=== PATIENT | male | born 1950 | race Caucasian/White ===

== ENCOUNTER 2018-01-23 16:00 | Emergency (ER) | payer MEDICARE ==
--- NOTE | 2018-01-23 17:16 | XR ---
EXAMINATION TYPE: XR pelvis AP view DATE OF EXAM: 01/23/2018 COMPARISON: NONE HISTORY: 67-year-old male with pain FINDINGS: No displaced fracture seen. Mild superolateral joint space narrowing at both hips. There are lucencie s projected along the intertrochanteric region on both sides, suspected external artifact. Limited vi sualization of the lower femoral necks due to external rotation of the hips. Mild osteopenia. IMPRESSION: Lucent artifacts projecting at the bilateral intertrochanteric regions. The lower femoral neck region s are also limited in assessment due to external rotation of the hips. There are no displaced fractur es. If the patient is nonweightbearing or there is concern for an occult osseous injury, consider rep eat radiograph with better centering and slight internal rotation at the hips versus MRI.
--- NOTE | 2018-01-23 17:17 | XR ---
EXAMINATION TYPE: XR chest 2V DATE OF EXAM: 01/23/2018 COMPARISON: None HISTORY: 67-year-old male with pain TECHNIQUE: PA and lateral views FINDINGS: Heart borderline enlarged. Low lung volumes. Mild diffuse interstitial prominence has a chronic appea mackenzie. Mild elongation thoracic aorta. No consolidation or pleural effusion. IMPRESSION: Hypoventilatory changes and borderline heart size. There are chronic appearing changes without acute process seen.
--- NOTE | 2018-01-23 17:19 | XR ---
EXAMINATION TYPE: XR thoracic spine 2V DATE OF EXAM: 01/23/2018 COMPARISON: NONE HISTORY: 67-year-old male with pain after fall TECHNIQUE: 3 views FINDINGS: Small T12 ribs. 12 rib-bearing thoracic vertebral bodies. All pedicles are visualized. Bridging anter ior endplate spondylosis especially mid thoracic spine suggesting dish. Minimal anterior wedging T11, T12, and L1 probably physiologic wedging or remote compression injuries. Otherwise, vertebral body h eights are preserved and alignment is maintained. IMPRESSION: 1. DISH. 2. Minimal anterior wedging of T11, T12, and L1 probably physiologic wedging or remote compression in juries. Correlate for any pain at these levels. 3. No other vertebral compression collapse or malalignment.
--- NOTE | 2018-01-23 17:42 | ED ---
General Adult HPI - General Chief complaint: Fall Stated complaint: Fall/rt ribs Time Seen by Provider: 01/23/18 16:13 Source: patient, RN notes reviewed, old records reviewed Mode of arrival: wheelchair Limitations: no limitations - History of Present Illness Initial comments: This is a 67-year-old male the ER for evaluation status post fall. Patient has complaints of rib pain after fall. Patient fell yesterday, he did fall backwards he is putting some right-sided rib pain some left-sided rib pain with a deep breath with cough and movement. Pain does not hurt all time is better when he lays still he denies shortness of breath - Related Data Allergies Allergy/AdvReac Type Severity Reaction Status Date / Time No Known Allergies Allergy Verified 01/23/18 16:07 Review of Systems ROS Statement: Those systems with pertinent positive or pertinent negative responses have been documented in the HPI. ROS Other: All systems not noted in ROS Statement are negative. Past Medical History Past Medical History: Diabetes Mellitus, Hyperlipidemia, Hypertension History of Any Multi-Drug Resistant Organisms: None Reported Past Surgical History: Appendectomy, Hernia Repair Past Psychological History: No Psychological Hx Reported Smoking Status: Former smoker Past Alcohol Use History: Occasional Past Drug Use History: None Reported General Exam Limitations: no limitations General appearance: alert, in no apparent distress Head exam: Present: atraumatic, normocephalic, normal inspection Eye exam: Present: normal appearance, PERRL, EOMI. Absent: scleral icterus, conjunctival injection, periorbital swelling ENT exam: Present: normal exam, mucous membranes moist Neck exam: Present: normal inspection. Absent: tenderness, meningismus, lymphadenopathy Respiratory exam: Present: normal lung sounds bilaterally. Absent: respiratory distress, wheezes, rales, rhonchi, stridor Cardiovascular Exam: Present: regular rate, normal rhythm, normal heart sounds. Absent: systolic murmur, diastolic murmur, rubs, gallop, clicks GI/Abdominal exam: Present: soft, normal bowel sounds. Absent: distended, tenderness, guarding, rebound, rigid Extremities exam: Present: normal inspection, full ROM, normal capillary refill. Absent: tenderness, pedal edema, joint swelling, calf tenderness Back exam: Present: normal inspection Neurological exam: Present: alert, oriented X3, CN II-XII intact Psychiatric exam: Present: normal affect, normal mood Skin exam: Present: warm, dry, intact, normal color. Absent: rash Course Vital Signs 01/23/18 16:02 Temperature 98.3 F Pulse Rate 59 L Respiratory 18 Rate Blood Pressure 147/76 O2 Sat by Pulse 97 Oximetry - Reevaluation(s) Reevaluation #1: 01/23/18 17:40 Patient's in no acute distress, no difficulty breathing Medical Decision Making - Medical Decision Making 67 male status post fall. Patient sustained no injury. Patient can be discharged home - Radiology Data Radiology results: report reviewed (X-ray chest pelvis negative for acute disease), image reviewed Disposition Clinical Impression: Fall, Rib contusion Disposition: HOME SELF-CARE Condition: Good Instructions: Fall Prevention for Older Adults (ED), Rib Contusion (ED) Is patient prescribed a controlled substance at d/c from ED?: No Referrals: Claudio Vaughn MD [Primary Care Provider] - 1-2 days
[2018-01-23 17:56] VITALS: BP 138/70; PULSE 80; RESP 16; TEMP 97.8
== END 2018-01-23 17:54 | disposition home or self-care (01) ==
LOC: EC 16:00
DX: S20.211A Contusion of right front wall of thorax, initial encounter (principal); S20.212A Contusion of left front wall of thorax, initial encounter; Z87.891 Personal history of nicotine dependence; W01.0XXA Fall on same level from slipping, tripping and stumbling without subsequent striking against object, initial encounter
CPT/HCPCS: 71046; 72070; 72170; 99284

== ENCOUNTER → 2021-12-08 | Outpatient (CLI) | payer MEDICARE ==
--- NOTE | 2021-12-08 20:48 | US ---
EXAMINATION TYPE: US duplex aorta DATE OF EXAM: 12/08/2021 COMPARISON: NONE CLINICAL HISTORY: Z13.6 SCREENING FOR CARDIOVASCULAR DISORDER. obese patient with large abdomen, h/o smoking, quit 50yrs ago, no symptoms, no family history EXAM MEASUREMENTS: Abdominal Aorta: Proximal: not seen due to bowel gas and habitus Mid: 2.3 x 2.2cn Distal: 1.7 x 1.6cm Bifurcation: not seen due to bowel gas and habitus Limited study due to habitus IMPRESSION: 1. Limited examination due to bowel gas and body habitus. 2. Obvious aneurysm is not identified. Consider follow-up.
== END | disposition home or self-care (01) ==
LOC: RADUSWWP 09:28
PROVIDERS: ATTEND Family Medicine
DX: Z13.6 Encounter for screening for cardiovascular disorders (principal); Z87.891 Personal history of nicotine dependence
CPT/HCPCS: 93979

== ENCOUNTER → 2023-05-18 | Outpatient (CLI) | payer MEDICARE ==
[2023-05-18 16:01] LABS: ALT 20 U/L (10-49); AST 20 U/L (14-35); Albumin 4.3 g/dL (3.8-4.9); Albumin/Globulin Ratio 1.95 Ratio (1.60-3.17); Alkaline Phosphatase 80 U/L (41-126); Blood Urea Nitrogen 28.5 mg/dL (9.0-27.0); Calcium 9.3 mg/dL (8.7-10.3); Carbon Dioxide 21.3 mmol/L (21.6-31.8); Chloride 101 mmol/L (96-109); Globulin 2.2 g/dL (1.6-3.3); Glucose 139 mg/dL (70-110); Potassium 4.2 mmol/L (3.5-5.5); Sodium 136 mmol/L (135-145); Total Bilirubin 0.8 mg/dL (0.3-1.2); Total Protein 6.5 g/dL (6.2-8.2)
== END | disposition home or self-care (01) ==
LOC: LABWHC1 09:52
PROVIDERS: ATTEND Internal Medicine Interventional Cardiology
DX: I10 Essential (primary) hypertension (principal); E78.2 Mixed hyperlipidemia
CPT/HCPCS: 36415; 80053; 80061

== ENCOUNTER → 2023-11-18 | Outpatient (CLI) | payer MEDICARE ==
[2023-11-18 15:38] LABS: ALT 16 U/L (10-49); AST 21 U/L (14-35); Albumin 4.3 g/dL (3.8-4.9); Albumin/Globulin Ratio 2.05 Ratio (1.60-3.17); Alkaline Phosphatase 74 U/L (41-126); BUN/Creat Ratio 12.62 Ratio (12.00-20.00); Blood Urea Nitrogen 16.4 mg/dL (9.0-27.0); Calcium 9.1 mg/dL (8.7-10.3); Carbon Dioxide 23.5 mmol/L (21.6-31.8); Chloride 102 mmol/L (96-109); Globulin 2.1 g/dL (1.6-3.3); Glucose 124 mg/dL (70-110); Potassium 3.9 mmol/L (3.5-5.5); Sodium 137 mmol/L (135-145); Total Bilirubin 0.5 mg/dL (0.3-1.2); Total Protein 6.4 g/dL (6.2-8.2)
== END | disposition home or self-care (01) ==
LOC: LABWHC1 09:33
PROVIDERS: ATTEND Nurse Practitioner Adult Health
DX: I10 Essential (primary) hypertension (principal); E78.2 Mixed hyperlipidemia
CPT/HCPCS: 36415; 80053; 80061

== ENCOUNTER 2024-01-11 09:34 | Inpatient (IN) | payer MEDICARE ==
--- NOTE | 2024-01-11 11:21 | ED ---
General Adult HPI - General Chief complaint: Neuro Symptoms/Deficit Stated complaint: L Hand Numbness Time Seen by Provider: 01/11/24 10:04 Source: patient Mode of arrival: ambulatory Limitations: no limitations - History of Present Illness Initial comments: Dictation was produced using [employer] dictation software. please excuse any grammatical, word or spelling errors. Chief Complaint: 73-year-old male with left hand tingling History of Present Illness: Patient 73-year-old male starting on Wednesday he had initial episode of left hand tingling. He states that he thought he woke up and slept on his arm wrong. He told his family about and they were worried he was having a stroke. Symptoms began 3 to 4 days ago. States that it improved significantly however he still feels some tingling. Patient [place] any other symptoms. Patient denies any history of CVA The ROS documented in this emergency department record has been reviewed and confirmed by me. Those systems with pertinent positive or negative responses have been documented in the HPI. All other systems are other negative and/or noncontributory. - Related Data Home Medications Medication Instructions Recorded Confirmed Aspirin EC [Ecotrin Low Dose] 81 mg PO DAILY 01/23/18 01/11/24 Atorvastatin [Lipitor] 20 mg PO DAILY 01/23/18 01/11/24 Losartan/Hydrochlorothiazide 1 tab PO DAILY 01/23/18 01/11/24 [Losartan-Hctz 100-25 mg Tab] atenoloL [Tenormin] 25 mg PO DAILY 01/23/18 01/11/24 Cholecalciferol [Vitamin D3 (25 75 mcg PO DAILY 01/11/24 01/11/24 Mcg = 1000 Iu)] Ginkgo Biloba [place] Extract [Ginkgo 125 mg PO DAILY 01/11/24 01/11/24 Biloba] Semaglutide [Ozempic] 1 mg SQ TH 01/11/24 01/11/24 Allergies Allergy/AdvReac Type Severity Reaction Status Date / Time No Known Allergies Allergy Verified 01/11/24 12:27 Review of Systems ROS Statement: Those systems with pertinent positive or pertinent negative responses have been documented in the HPI. ROS Other: All systems not noted in ROS Statement are negative. Past Medical History Past Medical History: Diabetes Mellitus, Hyperlipidemia, Hypertension History of Any Multi-Drug Resistant Organisms: None Reported Past Surgical History: Appendectomy, Hernia Repair Past Psychological History: No Psychological Hx Reported Smoking Status: Former smoker Past Alcohol Use History: Rare Past Drug Use History: None Reported General Exam - General Exam Comments Initial Comments: PHYSICAL EXAM: General Impression: Alert and oriented x3, not in acute distress HEENT: Normocephalic atraumatic, extra-ocular movements intact, pupils equal and reactive to light bilaterally, mucous membranes moist. Cardiovascular: Heart regular rate and rhythm Chest: Able to complete full sentences, no retractions, no tachypnea Abdomen: abdomen soft, non-tender, non-distended, no organomegaly Musculoskeletal: Pulses present and equal in all extremities, no peripheral edema Motor: no focal deficits noted Neurological: CN II-XII grossly intact, no focal motor deficits noted, reported reduced sensation to light touch of the left hand Skin: Intact with no visualized rashes Psych: Normal affect and mood Limitations: no limitations Course Vital Signs 01/11/24 01/11/24 01/11/24 09:46 12:00 13:00 Temperature 98.0 F Pulse Rate 66 61 Respiratory 18 18 17 Rate Blood Pressure 145/74 149/78 139/76 O2 Sat by Pulse 99 100 100 Oximetry 01/11/24 14:00 Temperature Pulse Rate 62 Respiratory 18 Rate Blood Pressure 160/81 O2 Sat by Pulse 97 Oximetry EKG Findings - EKG Comments: EKG Findings:: My EKG interpretation: Ventricular rate 70, sinus rhythm,. 195, cures 95, QTc 408. No OR prolongation, no QTC prolongation, no ST or T-wave changes noted. Overall, this EKG is unremarkable Medical Decision Making - Medical Decision Making Was pt. sent in by a medical professional or institution (, PA, DOGGER, urgent care, hospital, or senior care...) When possible be specific @ -No Did you speak to anyone other than the patient for history (EMS, parent, family, police, friend...)? What history was obtained from this source @ -No Did you review nursing and triage notes (agree or disagree)? Why? @ -I reviewed and agree with nursing and triage notes Were old charts reviewed (outside hosp., previous admission, EMS record, old EKG, old radiological studies, urgent care reports/EKG's, senior care records)? Report findings @ -No old charts were reviewed Differential Diagnosis (chest pain, altered mental status, abdominal pain women, abdominal pain men, vaginal bleeding, musculoskeletal, weakness, fever, dyspnea, syncope, headache, dizziness, GI bleed, back pain, seizure, CVA, palpatations, mental health)? @ - Differential CVA: Ischemic stroke, hemorrhagic stroke, brain tumor, atypical migraine, Wernicke's encephalopathy, seizure, multiple sclerosis, meningitis, encephalitis, hypoglycemia, Guillain-Ludwig, electrolytes disturbance, myasthenia gravis.... This is not meant to be an all-inclusive list EKG interpreted by me (3pts min.). @ -See above X-rays interpreted by me (1pt min.). @ -None done CT interpreted by me (1pt min.). @ -CT brain shows no acute intracranial processes. There is diffuse hypoattenuation of the cerebral parenchyma with loss of griffin-white matter differentiation CT angiography shows no large vessel occlusion. U/S interpreted by me (1pt. min.). @ -None done What testing was considered but not performed or refused? (CT, X-rays, U/S, labs)? Why? @ -None What meds were considered but not given or refused? Why? @ -None Was smoking cessation discussed for >3mins.? @ -No Were there social determinants of health that impacted care today? How? (Homelessness, low income, unemployed, alcoholism, drug addiction, transpo rtation, low edu. Level, literacy, decrease access to med. care, residential, rehab)? @ -No Was there de-escalation of care discussed even if they declined (Discuss DNR or withdrawal of care, Hospice)? DNR status @ -No What co-morbidities impacted this encounter? (DM, HTN, Smoking, COPD, CAD, Cancer, CVA, ARF, Chemo, Hep., AIDS, mental health diagnosis, sleep apnea, morbid obesity)? @ -None Was patient admitted / discharged? Hospital course, mention meds given and route, prescriptions, significant lab abnormalities, going to OR and other pertinent info. @ -73-year-old male with acute onset left hand paresthesias. He has no other associated symptoms. Vital signs upon arrival are within acceptable limits. Clinical presentation suspicious for CVA. Laboratory evaluation unremarkable. CT imaging studies shows no acute processes. CT angiography shows no large vessel occlusion. Patient outside the window for thrombolytics. Not a candidate for thrombectomy given risk outweigh the benefits. Patient given aspirin. Will be admitted. Case discussed with Dr. Butler for hospital admission Did you discuss the management of the patient with other professionals (professionals i.e. , PA, DOGGER, lab, RT, psych nurse, social work case manager, it help desk manager, teacher, civil preparedness officer, classification case manager)? Give summary @ -See above Was critical care preformed (if so, how long)? @ -No Undiagnosed new problem with uncertain prognosis? @ -No Drug Therapy requiring intensive monitoring for toxicity (Heparin, Nitro, Insulin, Cardizem)? @ -No Were any procedures done? @ -No Diagnosis/symptom? Acute, or Chronic, or Acute on Chronic? Uncomplicated (without systemic symptoms) or Complicated (systemic symptoms)? @ -Hand paresthesia suspicious for CVA Side effects of treatment? @ -No Exacerbation, Progression, or Severe Exacerbation? @ -No Poses a threat to life or bodily function? How? (Chest pain, [place], [place], pneumonia, PE, COPD, DKA, ARF, appy, cholecystitis, CVA, Diverticulitis, Homicidal, Suicidal, threat to staff... and all critical care pts) @ -yes - Lab Data Result diagrams: 01/11/24 10:57 01/11/24 10:57 Lab Results 01/11/24 01/11/24 01/11/24 Range/Units 10:57 10:57 10:57 WBC 8.1 (3.8-10.6) k/uL RBC 3.92 L (4.30-5.90) m/uL Hgb 12.2 L (13.0-17.5) gm/dL Hct 36.2 L (39.0-53.0) % MCV 92.5 (80.0-100.0) fL MCH 31.0 (25.0-35.0) pg MCHC 33.6 (31.0-37.0) g/dL RDW 13.2 (11.5-15.5) % Plt Count 209 (150-450) k/uL MPV 7.7 Neutrophils % 74 % Lymphocytes % 16 % Monocytes % 7 % Eosinophils % 1 % Basophils % 0 % Neutrophils # 6.0 (1.3-7.7) k/uL Lymphocytes # 1.3 (1.0-4.8) k/uL Monocytes # 0.6 (0-1.0) k/uL Eosinophils # 0.1 (0-0.7) k/uL Basophils # 0.0 (0-0.2) k/uL PT 10.2 (10.0-12.5) sec INR 0.9 (<1.2) APTT 23.9 (22.0-30.0) sec Sodium 137 (137-145) mmol/L Potassium 3.7 (3.5-5.1) mmol/L Chloride 109 H (98-107) mmol/L Carbon Dioxide 19 L (22-30) mmol/L Anion Gap 9 mmol/L BUN 22 H (9-20) mg/dL Creatinine 1.53 H (0.66-1.25) mg/dL Est GFR (CKD-EPI)AfAm 52 (>60 ml/min/1.73 sqM) Est GFR (CKD-EPI)NonAf 45 (>60 ml/min/1.73 sqM) Glucose 125 H (74-99) mg/dL Calcium 8.7 (8.4-10.2) mg/dL Disposition Clinical Impression: Cerebrovascular accident (CVA) Disposition: ADMITTED IP TO THIS HOSP Condition: Fair Referrals: Joe Hart MD [Primary Care Provider] - 1-2 days Decision Time: 15:40
[2024-01-11 11:27] LABS: Basophils % (A) 0 %; Eosinophils # (A) 0.1 k/uL (0-0.7); Eosinophils % (A) 1 %; HCT 36.2 % (39.0-53.0); HGB 12.2 gm/dL (13.0-17.5); Lymphocytes # (A) 1.3 k/uL (1.0-4.8); Lymphocytes % (A) 16 %; MCHC 33.6 g/dL (31.0-37.0); MCV 92.5 fL (80.0-100.0); Mean Platelet Volume 7.7; Monocytes # (A) 0.6 k/uL (0-1.0); Monocytes % (A) 7 %; Neutrophils % (A) 74 %; Platelet Count 209 k/uL (150-450); RBC 3.92 m/uL (4.30-5.90); RDW 13.2 % (11.5-15.5); WBC 8.1 k/uL (3.8-10.6)
[2024-01-11 11:30] LABS: African American GFR (CKD) 52 (>60 ml/min/1.73 sqM); Anion Gap 9 mmol/L; Blood Urea Nitrogen 22 mg/dL (9-20); Calcium 8.7 mg/dL (8.4-10.2); Carbon Dioxide 19 mmol/L (22-30); Chloride 109 mmol/L (98-107); Glucose 125 mg/dL (74-99); Non-African American GFR(CKD) 45 (>60 ml/min/1.73 sqM); Sodium 137 mmol/L (137-145)
[2024-01-11 11:33] LABS: INR 0.9 (<1.2); Partial Thromboplastin Time 23.9 sec (22.0-30.0); Prothrombin Time 10.2 sec (10.0-12.5)
[2024-01-11 11:36] LABS: Potassium 3.7 mmol/L (3.5-5.1)
[2024-01-11] MEDS: SODIUM CHLORIDE 0.9% 1,000 ML IV STA (12:47)
--- NOTE | 2024-01-11 13:03 | CT ---
EXAMINATION TYPE: CT brain wo con CT DLP: 1868.8 mGycm, Automated exposure control for dose reduction was used. DATE OF EXAM: 01/11/2024 12:51 PM COMPARISON: . CLINICAL INDICATION:Male, 73 years old with history of hand numbness, Hand numbness since Wednesday TECHNIQUE: Brain: Axial CT images of the brain were obtained with coronal and sagittal reformats created and rev iewed. Contrast used: None. Oral contrast used: None. FINDINGS: Brain: Extra-axial spaces: No abnormal extra-axial fluid collections. Ventricular system: Mildly prominent ventricles and sulci indicating age related involution Cerebral parenchyma: No acute intraparenchymal hemorrhage or mass effect. The griffin-white junction is well differentiated. Scattered hypoattenuating areas are seen within the white matter. Cerebellum: Unremarkable. Mass effect: No evidence of midline shift. Intracranial vasculature: unremarkable Soft tissues: Normal. Calvarium/osseous structures: No depressed skull fracture. Paranasal sinuses and mastoid air cells: Mild scattered paranasal sinus disease. Visualized orbits: Orbital contents are intact. IMPRESSION: No acute intracranial process. Diffuse hypoattenuation of the cerebral parenchyma with loss of the griffin-white matter differentiation . This suggests chronic microangiopathy. Age-related involution.
--- NOTE | 2024-01-11 14:24 | CT ---
EXAMINATION TYPE: CT angio head neck CT DLP: 1868.8 mGycm, Automated exposure control for dose reduction was used. DATE OF EXAM: 01/11/2024 1:39 PM COMPARISON: . CLINICAL INDICATION:Male, 73 years old with history of neurologic defect; PHH, Hand numbness since Fr iday TECHNIQUE: Axially acquired helical CT angiogram of the head and neck was obtained with contrast. Axi al images are supplemented with 3D reconstructions and MIP images which were post-processed at an in dependent workstation. NASCET criteria used. Contrast used:65 ml mL of Isovue 370 without and with IV Contrast, Oral contrast used: None. FINDINGS: CTA HEAD: No evidence of acute intracranial hemorrhage, mass effect, or midline shift. The ventricles, sulci, a nd cisterns are unremarkable. There is a small amount of calcific plaque in the right carotid bulb. The visualized portions of the internal carotid arteries, middle cerebral arteries, anterior cerebral arteries, and posterior cerebr al arteries are patent. The basilar and vertebral arteries are patent. CTA NECK: Right Carotid System: The common carotid artery and external carotid artery are patent. The carotid bifurcation demonstrate s no evidence of hemodynamically significant stenosis. A small amount of right carotid bifurcation pl aque. No flow-limiting stenosis. The remaining portions of the internal carotid artery demonstrate n ormal size without significant narrowing. Left Carotid System: The common carotid artery and external carotid artery are patent. The carotid bifurcation demonstrate s no evidence of hemodynamically significant stenosis. The remaining portions of the internal carotid artery demonstrate normal size without significant narrowing. Vertebral arteries are patent without evidence hemodynamically significant stenosis. There is a three-vessel aortic arch. The origins of the great vessels are patent. No evidence of hemo dynamically significant stenosis. Upper thorax: IMPRESSION: 1. No evidence of dissection of the cervical internal carotid arteries or vertebral arteries or any e vidence of significant stenosis at the carotid bifurcations. 2. No evidence of intracranial high-grade stenosis or intracranial aneurysm.
[2024-01-11] MEDS ORDERED: NALOXONE 0.4 MG/ML 1 ML VIAL IV PRN (15:37)
[2024-01-11] MEDS: ASPIRIN 81 MG PO STA ×2 (16:09→16:11)
[2024-01-11] MEDS: SODIUM CHLORIDE 0.9% 1,000 ML IV SCH (16:10)
--- NOTE | 2024-01-11 17:15 | P.HPIM ---
History of Present Illness H&P Date: 01/11/24 Subjective: 73-year-old male with a past medical history of hypertension, HLD, and type 2 diabetes presents with 3 to 4 days of left hand numbness/tingling/weakness. Patient reports the left hand numbness and weakness began on Wednesday morning (01/06) at which time he thought he may have just slept on it weird. Patient reports that he numbness and weakness has significantly improved by the end of the day Wednesday, but at that point the tingling had started in the left hand. Patient reports he has regained most of the strength in his left hand back and does not really feel too much tingling as of Wednesday night. Due to the persistence of some of the weakness in the left hand, the patient's family were worried that he may have had a stroke at which point they urged him to come to the emergency department. Upon arrival to the ED patient admitted to the left hand tingling/numbness/weakness but denied any other symptoms. Patient also denied any history of CVA. In the ED patient's vitals were within normal limits with the exception of a slightly elevated blood pressure of 145/74. Patient received labs in the ED which were significant for sodium 137, potassium 3.7, bicarb 19, BUN 22, cr eatinine 1.53, glucose 125, WBC 8.1, hemoglobin 12.2, PT 10.2, INR 0.9, and APTT 23.9. Patient also received imaging including a brain CT which showed no acute intracranial process and diffuse hypoattenuation of the cerebral parenchyma with loss of the griffin-white matter differentiation. This suggest chronic microangiopathy. Age-related involution. Patient also received angiography CT of the head and neck which showed no evidence of dissection of the cervical internal carotid arteries or vertebral arteries or any evidence of significant stenosis at the carotid bifurcations. It also showed no evidence of intracranial hidegrade stenosis or intracranial aneurysm. Patient also rec eived an EKG which showed normal sinus rhythm, ventricular rate 70 bpm, AR intervals 195 MS, QRS duration 95 MS, and QTc 408 MS. Patient is admitted for further workup of left hand weakness and to rule out possible CVA. Pertinent positives and negatives discussed above, a complete review of systems was preformed and all the other sytems were negative. Vitals Signs Reveiwed. General: non toxic, no distress, appears at stated age, obese Derm: no unusual rashes/lesions, warm Head: atraumatic, normocephalic, symmetric Eyes: EOMI, no lid lag, anicteric sclera, pupils equal round reactive to light ENT: Nose and ears atraumatic Neck: No cervical lymphadenopathy, trachea midline, supple Mouth: no lip lesion, mucus membranes moist Cardiovascular: S1S2 reg, no murmur, positive dorsalis pedis pulse bilateral, no edema Lungs: Decreased air entry bilaterally, no rhonchi, no rales, no accessory muscle use Abdominal: soft, nontender to palpation, no guarding Ext: muscle strength 5 out of 5 in all 4 extremities grossly, no gross muscle atrophy, no contractures, Neuro: CN II-XI grossly intact, right upper, right lower and left lower extremity no neurological deficits. Left upper extremity hand motor strength 4.5/5, sensation intact. Psych: Alert, oriented, appropriate affect Data Reveiwed Today: Patient Labs: sodium 137, potassium 3.7, bicarb 19, BUN 22, creatinine 1.53, glucose 125, WBC 8.1, hemoglobin 12.2, PT 10.2, INR 0.9, and APTT 23.9 Imaging: Brain CT which showed no acute intracranial process and diffuse hypoattenuation of the cerebral parenchyma with loss of the griffin-white matter differentiation. Angiography CT of the head and neck which showed no evidence of dissection of the cervical internal carotid arteries or vertebral arteries or any evidence of significant stenosis at the carotid bifurcations. It also showed no evidence of intracranial hidegrade stenosis or intracranial aneurysm. EKG which showed normal sinus rhythm, ventricular rate 70 bpm, AR intervals 195 MS, QRS duration 95 MS, and QTc 408 MS Assesment and Plan:73-year-old male with a past medical history of hypertension, HLD, and type 2 diabetes presents with 3 to 4 days of left hand numbness/tingling. Patient being admitted for further workup of left hand weakness and to rule out possible CVA. Left hand weakness: Pinched nerve VS. CVA VS. Unknown etiology Patient has near full motor strength in left upper extremity. Pinched nerve is possible based on history from patient, but need to fully rule out CVA. Imaging from brain CT and angiography CT showed no evidence of CVA or claudication of any vessels Neurology consulted Consider ordering brain MRI Continue to monitor neurological signs Continue fluids (NS IV 20 mls/hour) Diabetes mellitus type 2: Glucose 125 A1c pending Follow-up glucose in the a.m. Consider starting sliding scale Chronic: HLDholding home meds for now Hypertensionholding home meds for now F NS 1000 mL IV 20 MLS per hour E none N heart healthy diet A ambulates unassisted Code Status: Full code Anticipated discharge place: To home Anticipated discharge time: Pending clinical course, if cleared by neuro likely tomorrow (01/11) I have seen and evaluated the patient today. Discussed with the resident and agree with the residents subjective and objective as documented in the resident's note. The assessment and plan was discussed and outlined as below. Patient reports weakness in his left hand that has been progressively improving since Wednesday. Possible nerve impingement. Neurology consulted for possible CVA. Order MRI brain, Echo, A1c, Lipid panel. Permissive hypertension. Start ASA 81 mg PO QD. Continue Lipitor 20 mg PO QD. Advanced neurochecks. Telemetry monitoring. PT/OT/ST consulted. Neurology consulted. Past Medical History Past Medical History: Diabetes Mellitus, Hyperlipidemia, Hypertension History of Any Multi-Drug Resistant Organisms: None Reported Past Surgical History: Appendectomy, Hernia Repair Past Psychological History: No Psychological Hx Reported Smoking Status: Former smoker Past Alcohol Use History: Rare Past Drug Use History: None Reported Medications and Allergies Home Medications Medication Instructions Recorded Confirmed Type Aspirin EC [Ecotrin Low Dose] 81 mg PO DAILY 01/23/18 01/11/24 History Atorvastatin [Lipitor] 20 mg PO DAILY 01/23/18 01/11/24 History Losartan/Hydrochlorothiazide 1 tab PO DAILY 01/23/18 01/11/24 History [Losartan-Hctz 100-25 mg Tab] atenoloL [Tenormin] 25 mg PO DAILY 01/23/18 01/11/24 History Cholecalciferol [Vitamin D3 (25 75 mcg PO DAILY 01/11/24 01/11/24 History Mcg = 1000 Iu)] Ginkgo Biloba [place] Extract [Ginkgo 125 mg PO DAILY 01/11/24 01/11/24 History Biloba] Semaglutide [Ozempic] 1 mg SQ TH 01/11/24 01/11/24 History Allergies Allergy/AdvReac Type Severity Reaction Status Date / Time No Known Allergies Allergy Verified 01/11/24 12:27 Physical Exam Vitals: Vital Signs Temp Pulse Resp BP Pulse Ox 01/11/24 14:00 62 18 160/81 97 01/11/24 13:00 17 139/76 100 01/11/24 12:00 61 18 149/78 100 01/11/24 09:46 98.0 F 66 18 145/74 99 Intake and Output 01/11/24 01/11/24 01/11/24 06:59 14:59 22:59 Other: Weight 95.254 kg Results CBC & Chem 7: 01/11/24 10:57 01/11/24 10:57 Labs: Abnormal Lab Results - Last 24 Hours (Table) 01/11/24 01/11/24 Range/Units 10:57 10:57 RBC 3.92 L (4.30-5.90) m/uL Hgb 12.2 L (13.0-17.5) gm/dL Hct 36.2 L (39.0-53.0) % Chloride 109 H (98-107) mmol/L Carbon Dioxide 19 L (22-30) mmol/L BUN 22 H (9-20) mg/dL Creatinine 1.53 H (0.66-1.25) mg/dL Glucose 125 H (74-99) mg/dL
[2024-01-11 20:14] VITALS: RESP 16
[2024-01-12 05:47] LABS: Glucose,Whole Blood 122 mg/dL (70-110)
[2024-01-12] MEDS: INSULIN ASPART (NovoLOG) 100 UNIT/ML VIAL SQ SCH (06:01)
--- NOTE | 2024-01-12 07:56 | P.CNNES ---
History of Present Illness Consult date: 01/11/24 Requesting physician: Vinny Lema Reason for Consult: CVA History of Present Illness: Patient is a 73-year-old right-handed male came to the hospital today at 9:34 AM for evaluation of left wrist drop. Patient states that he had gone to his motor home and he slept in usual state of health on night, 01/06/2024. He went to sleep at 11:30 PM on a very thin mattress, which lays over the plywood. When he sleeps, he usually flips and flops, but that day he slept mostly on the left side. When he woke up on Wednesday at 9 AM, he noticed left wrist drop. He had some aching at a single spot on the left extensor forearm. He felt that he may have pinched a nerve. He was not able to dorsiflex his left wrist at all in the morning. By end of the day, it got better, that he was able to bring his w rist to the forearm level, but not above. He was in [facility], where there is no health facility therefore he could not go anywhere. Over the weekend he was busy in some family reunion on Wednesday and Wednesday. On Wednesday, yesterday he went to his PCP office, but could not see the doctor. He left a message with the front counter clerk, if this wrist drop was related to recent change in dose of Ozempic from 0.5-1.0 mg, that was done just the night prior. His primary physician did not feel it was related to the medication, and wanted to go to the ER. Patient completely denies any facial droop, any balance problem, leg weakness, slurred speech or visual disturbance since the symptoms started. Vital signs on arrival blood pressure 145/74, pulse rate 66 temperature 98.0. Blood test shows normal CBC, PT PTT, normal basic metabolic panel with BUN 22 creatinine 1.53. EKG showed sinus rhythm. CT head showed no acute intracranial process. Diffuse hypoattenuation of the cerebral parenchyma with loss of griffin- white matter differentiation. This suggests chronic microangiopathy. Age-related involution. I personally reviewed CT head, agree with the findings. CTA of head and neck revealed no evidence of dissection of the cervical internal carotid arteries or vertebral arteries or any evidence of significant stenosis of the carotid bifurcation. No evidence of intracranial high-grade stenosis or intracranial aneurysm. Patient's home medications include aspirin 81 mg, Lipitor 20 mg, atenolol 25 mg, losartan/HCTZ, Ozempic, vitamin D and ginkgo biloba. Patient has history of diabetes for 15 years, also has hypertension. Patient quit smoking in 1972. Denies any alcohol use. Denies any previous history of strokes or TIA. Review of Systems Completely unremarkable, except as pertinent positive and negatives mentioned in the HPI. Patient does admit to being emotionally labile lately, as he would cry for no reason. Past Medical History Past Medical History: Diabetes Mellitus, Hyperlipidemia, Hypertension History of Any Multi-Drug Resistant Organisms: None Reported Past Surgical History: Appendectomy, Hernia Repair Past Psychological History: No Psychological Hx Reported Smoking Status: Former smoker Past Alcohol Use History: Rare Past Drug Use History: None Reported Medications and Allergies Home Medications Medication Instructions Recorded Confirmed Type Aspirin EC [Ecotrin Low Dose] 81 mg PO DAILY 01/23/18 01/11/24 History Atorvastatin [Lipitor] 20 mg PO DAILY 01/23/18 01/11/24 History Losartan/Hydrochlorothiazide 1 tab PO DAILY 01/23/18 01/11/24 History [Losartan-Hctz 100-25 mg Tab] atenoloL [Tenormin] 25 mg PO DAILY 01/23/18 01/11/24 History Cholecalciferol [Vitamin D3 (25 75 mcg PO DAILY 01/11/24 01/11/24 History Mcg = 1000 Iu)] Ginkgo Biloba [place] Extract [Ginkgo 125 mg PO DAILY 01/11/24 01/11/24 History Biloba] Semaglutide [Ozempic] 1 mg SQ TH 01/11/24 01/11/24 History Allergies Allergy/AdvReac Type Severity Reaction Status Date / Time No Known Allergies Allergy Verified 01/11/24 12:27 Physical Examination - Vital Signs Vital Signs: Vital Signs Temp Pulse Resp BP Pulse Ox 01/11/24 16:00 60 18 157/77 100 01/11/24 15:00 64 20 155/76 99 01/11/24 14:00 62 18 160/81 97 01/11/24 13:00 17 139/76 100 01/11/24 12:00 61 18 149/78 100 01/11/24 09:46 98.0 F 66 18 145/74 99 Intake and Output 01/11/24 01/11/24 01/11/24 06:59 14:59 22:59 Other: Weight 95.254 kg Patient is an elderly male, very pleasant, in no acute distress. Patient is alert awake oriented to time place and person. Speech and language functions are normal. Patient can name and repeat very well. No aphasia or dysarthria. Attention, concentration and fund of knowledge is adequate. On cranial nerve examination, pupils are equal, round and reacting to light, visual porras are full on confrontation, with no neglect on double simultaneous stimulation. Extraocular muscles are intact with no nystagmus. Face is symmetric, tongue protrudes to the midline. Palatal elevation and sensation normal, hearing and shoulder shrug normal, facial sensation normal. On muscle strength testing, there is no pronator drift and the strength is normal in arms and legs distally and proximally, except left wrist extension 4-, and finger extension 4. His finger flexion, wrist flexion, and rest of the muscle strength is normal. On checking of the thumb, his left thumb abduction, thumb flexion are normal, but thumb extension is about 4. Deep tendon reflexes are symmetric 1+ all over and plantars downgoing. Sensory to touch is equal with no neglect on double simultaneous stimulation. No loss of sensation in radial nerve distribution. Cerebellar function showed no ataxia for [id number] testing. No dysdiadochokinesia. No ataxia for [id number] testing on either side. Tone and bulk of muscles normal. Gait deferred.. On general examination, there is no carotid bruit or murmur, S1-S2 audible. Chest is clear on consultation. Abdomen is soft nontender. No organomegaly, bowel sounds present. Peripheral pulses are present. No peripheral edema. Results - Laboratory Findings CBC and BMP: 01/11/24 10:57 01/11/24 10:57 Abnormal Lab Findings: Abnormal Labs 01/11/24 01/11/24 10:57 10:57 RBC 3.92 L Hgb 12.2 L Hct 36.2 L Chloride 109 H Carbon Dioxide 19 L BUN 22 H Creatinine 1.53 H Glucose 125 H Assessment and Plan Assessment: * Left wrist drop, probably due to compression of the radial nerve at the radial groove on the humerus from laying on the left arm on a hard mattress. Doubt CVA. * Diabetes * Hypertension * Hyperlipidemia Plan: * Patient's symptoms are highly suggestive of radial nerve palsy because of compression of radial nerve at the radial groove. However patient has multiple vascular risk factors, therefore will undergo MRI of the brain to rule out CVA. * CTA of head and neck revealed no evidence of dissection of the cervical internal carotid arteries or vertebral arteries or any evidence of significant stenosis at the carotid bifurcations. No evidence of intracranial high-grade stenosis or intracranial aneurysm. * Patient undergoing testing for hemoglobin A1c, lipid panel. * If MRI is negative, then we will be clear for discharge. * Continue aspirin 81 mg, and Lipitor 20 mg. * Recommended patient not to lay on the left side, particularly on firm thin mattress. * Neurology will follow. Thank you for the consult.
[2024-01-12 08:40] LABS: HCT 35.8 % (39.0-53.0); MCH 31.2 pg (25.0-35.0); MCHC 33.4 g/dL (31.0-37.0); MCV 93.6 fL (80.0-100.0); Mean Platelet Volume 7.7; Platelet Count 226 k/uL (150-450); RBC 3.83 m/uL (4.30-5.90); RDW 13.3 % (11.5-15.5); WBC 9.4 k/uL (3.8-10.6)
[2024-01-12 08:48] LABS: African American GFR (CKD) 54 (>60 ml/min/1.73 sqM); Anion Gap 7 mmol/L; Blood Urea Nitrogen 18 mg/dL (9-20); Calcium 8.8 mg/dL (8.4-10.2); Carbon Dioxide 22 mmol/L (22-30); Chloride 108 mmol/L (98-107); Glucose 119 mg/dL (74-99); Non-African American GFR(CKD) 47 (>60 ml/min/1.73 sqM); Potassium 3.7 mmol/L (3.5-5.1); Sodium 137 mmol/L (137-145)
[2024-01-12] MEDS: ENOXAPARIN 40 MG/0.4 ML SYRINGE SQ SCH (09:03)
[2024-01-12] MEDS: LOSARTAN-HCTZ 50-12.5 MG 1 EACH TAB PO SCH (09:03)
[2024-01-12] MEDS: ATORVASTATIN 20 MG TAB PO SCH (09:03)
[2024-01-12 09:59] VITALS: BP 162/83; PULSE 73; TEMP 98
--- NOTE | 2024-01-12 10:24 | MR ---
EXAMINATION TYPE: MR brain wo con DATE OF EXAM: 01/12/2024 COMPARISON: 01/11/2024 HISTORY: Hand numbness TECHNIQUE: T1-weighted sagittal, T2, FLAIR, and diffusion axial, and T2 coronal coronal views of the brain are submitted. FINDINGS: There is no evidence of acute ischemia. Moderate degenerative change. Multifocal areas of abnormal signal in the white matter nonspecific but most typical of remote microvascular ischemia. Some faint areas of abnormal signal in the marshall sugge stive of remote ischemic change. Punctate areas of abnormal signal involving the basal ganglia may be related to prominent Virchow-Chicho spaces or tiny remote linear infarct. Orbits are symmetric. Changes of mild chronic sinusitis. Correlate for prior orbital surgery.. Craniocervical junction maintained. Sella turcica has a normal appearance. IMPRESSION: 1. No acute intracranial process. 2. 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
--- NOTE | 2024-01-12 11:17 | P.DS ---
Providers Date of admission: 01/11/24 15:38 Expected date of discharge: 01/12/24 Attending physician: Cathy Butler MD Consults: 01/11/24 15:37 Consult Physician Routine Consulting Provider: Raul Garcia Consult Reason/Comments: cva Do you want consulting provider notified?: Yes Primary care physician: [facility] Course: 73 year old M with PMH of HTN, DM, HLD presents to the ED for 4 days of left hand clumsiness and numbness/tingling. His symptoms has been progessively improving since then. He denied any headache, blurry vision, slurred speech, difficulty ambulating or eating, or any other focal neurologic deficits. In the ED he underwent extensive evaluation. BP 145/74, HR 66, RR 18, T 98F, 99% on RA. CBC, Coag panel and CMP significant for Hg 12.2, Hct 36.2, Cl 109, bicarb 19, BUN 22, Cr 1.53, glu 125. A1c 6.9. EKG sinus ryhthm. CT brain no acute process, diffuse hypoattenuation of the cerebral parenchyma with loss of the griffin-white matter differentiation suggestive of chronic microangiopathy. Neurology consulted, symptoms highly suggestive of radial nerve palsy, MRI recommended. MRI was negative for acute CVA. Cleared by Neurology. 01/11 Patient was seen and examined. Left hand clumsiness improving. Plans for discharge home today. Resume home medication. General: non toxic, no distress, appears at stated age Derm: warm, dry Head: atraumatic, normocephalic, symmetric Eyes: EOMI, no lid lag, anicteric sclera Mouth: no lip lesion, mucus membranes moist Cardiovascular: S1S2 reg, no murmur Lungs: CTA bilateral, no rhonchi, no rales , no accessory muscle use Ext: no gross muscle atrophy, no edema, no contractures Neuro: no focal neuro deficits Psych: Alert, oriented, appropriate affect Discharge Diagnosis: Left hand weakness likely radial nerve palsy Normocytic anemia Acute kidney injury, likely component of chronic kidney disease Hyperchloremic metabolic acidosis Hypertension Diabetes mellitus with A1c of 6.8 Dyslipidemia This complex discharge took 35 minutes to complete. Patient Condition at Discharge: Stable Plan - Discharge Summary Discharge Rx Participant: No New Discharge Prescriptions: Continue Aspirin EC [Ecotrin Low Dose] 81 mg PO DAILY Atorvastatin [Lipitor] 20 mg PO DAILY atenoloL [Tenormin] 25 mg PO DAILY Losartan/Hydrochlorothiazide [Losartan-Hctz 100-25 mg Tab] 1 tab PO DAILY Ginkgo Biloba [place] Extract [Ginkgo Biloba] 125 mg PO DAILY Semaglutide [Ozempic] 1 mg SQ TH Cholecalciferol [Vitamin D3 (25 Mcg = 1000 Iu)] 75 mcg PO DAILY Discharge Medication List Aspirin EC [Ecotrin Low Dose] 81 mg PO DAILY 01/23/18 [History] Atorvastatin [Lipitor] 20 mg PO DAILY 01/23/18 [History] Losartan/Hydrochlorothiazide [Losartan-Hctz 100-25 mg Tab] 1 tab PO DAILY 01/23/18 [History] atenoloL [Tenormin] 25 mg PO DAILY 01/23/18 [History] Cholecalciferol [Vitamin D3 (25 Mcg = 1000 Iu)] 75 mcg PO DAILY 01/11/24 [History] Ginkgo Biloba [place] Extract [Ginkgo Biloba] 125 mg PO DAILY 01/11/24 [History] Semaglutide [Ozempic] 1 mg SQ TH 01/11/24 [History] Follow up Appointment(s)/Referral(s): Joe Hart MD [Primary Care Provider] - 1-2 days Discharge Disposition: HOME SELF-CARE
[2024-01-12 15:18] LABS: Chol/HDL Ratio 3.64 Ratio; LDL Cholesterol,Calculated 31.8 mg/dL (0.0-131.0)
[2024-01-13] MEDS ORDERED: ASPIRIN 81 MG PO SCH (09:00)
== END 2024-01-12 12:22 | disposition home or self-care (01) | DRG 74 ==
LOC: EC 09:34 → 3SCARD 15:38
PROVIDERS: ADMIT Family Medicine; ATTEND Family Medicine
DX: G56.32 Lesion of radial nerve, left upper limb (principal); N17.9 Acute kidney failure, unspecified; E11.22 Type 2 diabetes mellitus with diabetic chronic kidney disease; I73.89 Other specified peripheral vascular diseases; D63.1 Anemia in chronic kidney disease; E87.8 Other disorders of electrolyte and fluid balance, not elsewhere classified; I12.9 Hypertensive chronic kidney disease with stage 1 through stage 4 chronic kidney disease, or unspecified chronic kidney disease; N18.9 Chronic kidney disease, unspecified; E78.5 Hyperlipidemia, unspecified; M21.332 Wrist drop, left wrist; Z87.891 Personal history of nicotine dependence; Z79.82 Long term (current) use of aspirin; Z79.899 Other long term (current) drug therapy; Z79.85 Long-term (current) use of injectable non-insulin antidiabetic drugs
CPT/HCPCS: 36415; 70450; 70496; 70498; 70551; 80048; 80061; 83036; 85025; 85027; 85610; 85730; 93005; 96360; 99285

== ENCOUNTER → 2024-11-09 | Outpatient (CLI) | payer MEDICARE ==
[2024-11-09 15:46] LABS: ALT 12 U/L (10-49); AST 17 U/L (14-35); Albumin/Globulin Ratio 1.82 Ratio (1.60-3.17); Alkaline Phosphatase 82 U/L (41-126); BUN/Creat Ratio 14.56 Ratio (12.00-20.00); Blood Urea Nitrogen 23.3 mg/dL (9.0-27.0); Calcium 8.8 mg/dL (8.7-10.3); Carbon Dioxide 22.6 mmol/L (21.6-31.8); Chloride 104 mmol/L (96-109); Chol/HDL Ratio 3.51 Ratio; Globulin 2.2 g/dL (1.6-3.3); Glucose 143 mg/dL (70-110); LDL Cholesterol,Calculated 42.8 mg/dL (0.0-131.0); Sodium 140 mmol/L (135-145); Total Bilirubin 0.5 mg/dL (0.3-1.2); Total Protein 6.2 g/dL (6.2-8.2); VLDL Calculation 18.74 mg/dL (5.00-40.00)
== END | disposition home or self-care (01) ==
LOC: LABWHC1 09:59
PROVIDERS: ATTEND Family Medicine
DX: I10 Essential (primary) hypertension (principal); E78.2 Mixed hyperlipidemia
CPT/HCPCS: 36415; 80053; 80061